=== PATIENT | female | born 1955 | race Caucasian/White ===

== ENCOUNTER 2019-09-21 18:16 | Outpatient (REF) | payer BC, SELFPAY ==
[2019-09-21 20:36] LABS: Abs Immature Grans 0.02 k/cumm (0.0-0.09); Absolute Basophil Count 0.01 k/cumm (0.0-0.2); Absolute Eosinophil Count 0.21 k/cumm (0.0-0.7); Absolute Lymphocyte Count 3.66 k/cumm (1.2-3.4); Absolute Monocyte Count 0.52 k/cumm (0.11-0.7); Absolute Neutrophil Count 4.27 k/cumm (1.2-6.7); Basophils % 0.1; Eosinophils % 2.4; HCT 42.2 % (36.0-46.0); Immature Grans % 0.2; Lymphocytes % 42.1; Mean Corp. HGB Concentration 33.2 g/dL (32.0-36.0); Mean Corpuscular Volume 90.6 fL (80-95); Mean Platelet Volume 9.5 fL (8.0-11.0); Neutrophils % 49.2; Platelet Count 295 x1000/uL (130-400); RBC 4.66 m/cumm (4.00-5.20); RBC Distribution Width 12.7 % (11.7-14.6); White Blood Cell Count 8.69 k/cumm (4.4-10.8)
[2019-09-21 21:21] LABS: Hemoglobin A1C 5.9 % (4.5-6.2)
[2019-09-21 21:25] LABS: ALT 27 U/L (14-59); AST 21 U/L (15-37); Albumin 4.2 g/dL (3.4-5.0); Alkaline Phosphatase 87 U/L (46-116); Anion Gap 12.3 mmol/L (3-11); BUN 23 mg/dL (7-18); Bilirubin, Total 0.3 mg/dL (0.2-1.0); CO2 26.7 mmol/L (21.0-32.0); Calcium 9.4 mg/dL (8.5-10.1); Calculated LDL 124 mg/dL; Chloride 101 mmol/L (98-107); Cholesterol 213 mg/dL (<200); Glucose 92 mg/dL (74-106); HDL Cholesterol 73 mg/dL (40-60); Potassium 4.1 mmol/L (3.5-5.1); Sodium 140 mmol/L (136-145); TSH (W/Ref FT4) 4.59 uIU/mL (0.36-3.74); Total Protein 7.6 g/dL (6.4-8.2); Triglyceride 84 mg/dL (<150)
[2019-09-21 21:51] LABS: FREE T4 0.82 ng/dL (0.76-1.46)
== END 2019-09-21 18:36 ==
LOC: NCHCN 18:16
PROVIDERS: PCP Physician Assistant Medical; Visit Provider Physician Assistant Medical
DX: Z00.00 Encounter for general adult medical examination without abnormal findings (principal); Z13.29 Encounter for screening for other suspected endocrine disorder; Z13.0 Encounter for screening for diseases of the blood and blood-forming organs and certain disorders involving the immune mechanism; Z13.1 Encounter for screening for diabetes mellitus; Z13.220 Encounter for screening for lipoid disorders
CPT/HCPCS: 80053; 80061; 83036; 84439; 84443; 85025

== ENCOUNTER 2020-10-10 19:51 | Outpatient (REF) | payer BC, SELFPAY | END 2020-10-10 20:11 | LOC: NCHCN 19:51 | PROVIDERS: PCP Physician Assistant Medical; Visit Provider Physician Assistant Medical | DX: Z00.00 Encounter for general adult medical examination without abnormal findings (principal); R94.6 Abnormal results of thyroid function studies; Z13.1 Encounter for screening for diabetes mellitus | CPT/HCPCS: 83036 ==

== ENCOUNTER 2021-08-12 14:19 | Outpatient (REF) | payer BC, SELFPAY ==
[2021-08-12 20:38] LABS: Abs Immature Grans 0.02 10^3/uL (0.0-0.06); Absolute Basophil Count 0.02 10^3/uL (0.0-0.2); Absolute Lymphocyte Count 2.57 10^3/uL (1.2-3.4); Absolute Monocyte Count 0.48 10^3/uL (0.1-0.8); Absolute Neutrophil Count 6.08 10^3/uL (1.2-6.7); Basophils % 0.2; Eosinophils % 1.1; HCT 41.9 % (36.0-46.0); HGB 13.6 g/dL (11.2-15.7); Immature Grans % 0.2; Lymphocytes % 27.7; MCH 29.6 pg (27.0-33.0); MCHC 32.5 % (32.0-36.0); MCV 91.3 fL (80-95); Monocytes % 5.2; Neutrophils % 65.6; Nucleated RBC 0 %; Platelet Count 281 10^3/uL (130-400); RBC 4.59 10^6/uL (3.93-5.22); RDW 11.8 % (11.7-14.6); RDW-SD 39.5 fL; WBC 9.27 10^3/uL (4.4-10.8)
[2021-08-12 20:54] LABS: ALT 25 U/L (14-59); AST 16 U/L (15-37); Albumin 4.5 g/dL (3.4-5.0); Alkaline Phosphatase 83 U/L (46-116); Anion Gap 8.6 mmol/L (3-11); BUN 16 mg/dL (7-18); Bilirubin, Total 0.4 mg/dL (0.2-1.0); CO2 29.4 mmol/L (21.0-32.0); CREATININE 0.8 mg/dL (0.55-1.02); Calcium 9.8 mg/dL (8.5-10.1); Chloride 103 mmol/L (98-107); FREE T4 0.98 ng/dL (0.76-1.46); Glucose 89 mg/dL (74-106); Potassium 4.5 mmol/L (3.5-5.1); Sodium 141 mmol/L (136-145); Total Protein 7.5 g/dL (6.4-8.2)
[2021-08-12 21:03] LABS: Hemoglobin A1C 5.9 % (<5.7)
[2021-08-13 17:28] LABS: T3, Total 172 ng/dL (97-169)
== END 2021-08-12 14:20 | disposition home or self-care (01) ==
LOC: NCHCN 14:19
PROVIDERS: PCP Physician Assistant Medical; Visit Provider Physician Assistant Medical
DX: R53.83 Other fatigue (principal); R94.6 Abnormal results of thyroid function studies
CPT/HCPCS: 80053; 83036; 84439; 84480; 85025

== ENCOUNTER 2022-02-10 14:44 | Outpatient (REF) | payer BC, SELFPAY ==
--- NOTE | 2022-02-10 14:00 | PAPFT_PTH ---
PATIENT: Huyen Connelly LOC: [facility]#:[id number] AGE/SX: 66/F ROOM: RE02/10/[address]: Mary Lou Dockery : 1955 BED: DIS: 02/10/2022 SPEC #: [id number] RECD: 02/11/22 10:59 STATUS: AGUILA REQ #: [id number] DEEPTHI: 02/10/22 14:[address]: Mary Lou Dockery DEPT: [facility] Cytology RECD BY: Surekha Byers Tissues: 1 - CX/ENDOCX FOR PAP SMEARS Procedures: PAP THIN PREP/[facility] Screening HPV DNA PROBE Comments: [id number]
== END 2022-02-10 14:45 | disposition home or self-care (01) ==
LOC: NCHCN 14:44
PROVIDERS: PCP Physician Assistant Medical; Visit Provider Physician Assistant Medical
DX: Z12.4 Encounter for screening for malignant neoplasm of cervix (principal); Z11.51 Encounter for screening for human papillomavirus (HPV); Z01.419 Encounter for gynecological examination (general) (routine) without abnormal findings
CPT/HCPCS: 88142; 87624

== ENCOUNTER 2023-03-24 21:50 | Outpatient (REF) | payer MEDICARE, SELFPAY ==
[2023-03-24 20:44] LABS: ALT 25 U/L (14-59); AST 22 U/L (15-37); Albumin 4.2 g/dL (3.4-5.0); Alkaline Phosphatase 84 U/L (46-116); Anion Gap 5.4 mmol/L (3-11); BUN 22 mg/dL (7-18); Bilirubin, Total 0.3 mg/dL (0.2-1.0); CO2 28.6 mmol/L (21.0-32.0); CREATININE 0.8 mg/dL (0.55-1.02); Calcium 9.2 mg/dL (8.5-10.1); Chloride 102 mmol/L (98-107); Estimated GFR 81.72 (mL/min/1.73m2); Glucose 103 mg/dL (74-106); Potassium 3.8 mmol/L (3.5-5.1); Sodium 136 mmol/L (136-145); TSH (W/Ref FT4) 1.43 uIU/mL (0.36-3.74); Total Protein 7.9 g/dL (6.4-8.2)
[2023-03-24 20:45] LABS: Hemoglobin A1C 5.8 % (<5.7)
== END 2023-03-24 21:51 | disposition home or self-care (01) ==
LOC: NCHCN 21:50
PROVIDERS: PCP Physician Assistant Medical; Visit Provider Physician Assistant Medical
DX: R73.03 Prediabetes (principal); R94.6 Abnormal results of thyroid function studies; R53.83 Other fatigue
CPT/HCPCS: 80053; 83036; 84443